=== PATIENT | male | born 1955 | race Caucasian/White ===

== ENCOUNTER 2020-10-10 07:39 | Day surgery (SDC) | payer BC ==
[2020-10-03 16:33] LABS: BASOPHILS # (AUTO) 0.1 X10'3 (0-0.2); EOSINOPHILS # (AUTO) 0.1 X10'3 (0-0.9); EOSINOPHILS % (AUTO) 2.8 % (0-6); LYMPHOCYTES # (AUTO) 1.3 X10'3 (1.1-4.8); LYMPHOCYTES % (AUTO) 25.1 % (21-51); MEAN CORPUSCULAR HEMOGLOBIN 33.4 PG (27.0-31.0); MEAN CORPUSCULAR HGB CONC 34.2 g/dL (33.0-36.5); MEAN CORPUSCULAR VOLUME 97.6 FL (78-98); MEAN PLATELET VOLUME 7.5 FL (7.4-10.4); MONOCYTES # (AUTO) 0.5 X10'3 (0-0.9); NEUTROPHILS # (AUTO) 3.2 X10'3 (1.8-7.7); NEUTROPHILS % (AUTO) 61.1 % (42-75); PRE OP HEMATOCRIT 47.3 % (42.0-52.0); PRE OP HEMOGLOBIN 16.2 g/dL (14.0-17.9); PRE OP PLATELET COUNT 227 X10'3 (140-440); RED BLOOD COUNT 4.85 X10'6 (4.70-6.10); RED CELL DISTRIBUTION WIDTH 12.9 % (11.5-14.5)
[2020-10-03 16:38] LABS: PRE OP PROTIME 10.8 SECONDS (9.0-12.0)
[2020-10-03 16:40] LABS: ALBUMIN 3.7 G/DL (3.4-5.0); ALKALINE PHOSPHATASE 80 IU/L (46-116); BLOOD UREA NITROGEN 14 MG/DL (7-18); BUN/CREATININE RATIO 16.7 (5.4-32.0); CHLORIDE 105 MMOL/L (99-107); CREATININE 0.84 MG/DL (0.60-1.10); PRE OP ANION GAP 6 (8-16); PRE OP AST 53 U/L (10-37); PRE OP BILIRUB, TOTAL 0.8 MG/DL (0.0-1.0); PRE OP GLUCOSE 89 MG/DL (70-104); PRE OP POTASSIUM 3.6 MMOL/L (3.4-5.1); PRE OP SODIUM 141 MMOL/L (135-145); TOTAL CARBON DIOXIDE 29.7 MMOL/L (24-32); TOTAL PROTEIN 7.3 G/DL (6.4-8.2); eGFR > 90 ML/MIN
[2020-10-03 16:48] LABS: PRE OP ALT 85 U/L (30-65)
[~2020-10-10] VITALS: Ht 177.8 cm; Wt 92.9 kg
[2020-10-10] VITALS (9 sets, daily range): BP systolic 140–151; BP diastolic 82–97
[~2020-10-10 07:39] MED LIST: DIPH25CA52 PO; FLO0.4C PO; FLUT16SP2 BOTHNARES; HYDR-3686 PO; IBUP-24 PO; LIDOcaine 1% W/epiNEPHrine 1:100,000 20ml vial ONE; LIDOcaine 1% W/epiNEPHrine 1:200,000 10ml vial ONE; LISI40TA13 PO; MELA1TAB28 PO; cefTAZidime 1gm inj ONE; cocaine 4% topical solution 4ml bottle ONE; diazepam 5mg tablet PO PRN; famotidine 20mg tablet PO ONE; methylPREDNISolone acetate 80mg/ml inj**IM only ONE; mupirocin 2% ointment 22GM ONE; oxymetazoline 15 ML nasal spray NS ONE; oxymetazoline 15 ML nasal spray NS PRN; ringers solution, lacted 1,000 ML IV SCH
[2020-10-10] MEDS ORDERED: midazolam 1 mg/ML 2ml injection ONE (09:25)
[2020-10-10] MEDS ORDERED: fentaNYL/PF 50MCG/1 ML 2ML syringe ONE ×2 (09:25→09:58)
[2020-10-10] MEDS ORDERED: dexamethasone sod phosphate 4mg/ml inj. ONE (09:26)
[2020-10-10] MEDS ORDERED: propofol inj 20 ML IV ONE (09:26)
[2020-10-10] MEDS ORDERED: LIDOcaine 2% (20mg/ml) 5ml vial ONE (09:26)
[2020-10-10] MEDS ORDERED: ondansetron/PF 4mg/2ml inj ONE (09:26)
[2020-10-10] MEDS ORDERED: ondansetron/PF 4mg/2ml inj IV PRN (09:35)
[2020-10-10] MEDS ORDERED: morphine 4 MG/ML inj SYRINge IV PRN (09:35)
[2020-10-10] MEDS ORDERED: morphine 2 MG/ML inj. syringe IV PRN (09:35)
[2020-10-10] MEDS ORDERED: acetaminophen 1000 MG/100ml vial IV ONE (09:35)
[2020-10-10] MEDS ORDERED: meperidine/PF 25mg/ml syringe IV PRN ×3 (09:35)
[2020-10-10] MEDS ORDERED: sevoflurane 250ml liquid IH ONE (09:35)
[2020-10-10] MEDS ORDERED: proCHLORperazine 10 MG/2 ml inj IV PRN (09:35)
[2020-10-10] MEDS ORDERED: labetalol 20mg/4ml (5mg/ml) syringe IV ONE (09:35)
[2020-10-10] MEDS ORDERED: ringers solution, lacted 1,000 ML IV SCH (09:35)
[2020-10-10] MEDS ORDERED: ePHEDrine 50MG/ML INJ. ONE (10:17)
[2020-10-10] MEDS ORDERED: meperidine/PF 25mg/ml syringe ONE (11:05)
--- NOTE | 2020-10-10 11:20 | NUR ---
ADMITTED TO PACU FROM OR ACCOMPANIED BY ANESTHESIA. INTIAL PHYSICAL ASSESSMENT DONE AND RECORDED. REPORT RECEIVED FROM ANESTHESIA.
[2020-10-10] MEDS ORDERED: salt irrigation nasal spray 45 ML SPRAY NS PRN (12:05)
--- NOTE | 2020-10-10 12:30 | NUR ---
DISCHARGE CRITERIA MET, DISCHARGE INSTRUCTIONS GIVEN, DEMONSTRATES VERBAL UNDERSTANDING. DISCHARGED HOME IN GOOD CONDITION.
== END 2020-10-10 12:30 | disposition home or self-care (01) ==
LOC: PAS 07:39
PROVIDERS: ATTEND Otolaryngology
DX: J34.2 Deviated nasal septum (principal); J34.3 Hypertrophy of nasal turbinates; J32.8 Other chronic sinusitis; J34.89 Other specified disorders of nose and nasal sinuses; I10 Essential (primary) hypertension; N40.0 Benign prostatic hyperplasia without lower urinary tract symptoms; Z79.899 Other long term (current) drug therapy; Z79.01 Long term (current) use of anticoagulants; Z98.890 Other specified postprocedural states; Z87.442 Personal history of urinary calculi; Z87.891 Personal history of nicotine dependence
CPT/HCPCS: 30140; 30520; 31240; 31254; 31256; 36415; 61782; 80053; 82948; 85025; 85576; 85610; 85730; 93005; A6402; C9250; J0131; J0713; J1040; J1100; J2001; J2175; J2250; J2405; J2704; J3010; J7040; A4618; A7000; J3490; J7120

== ENCOUNTER 2023-11-25 07:35 | Day surgery (SDC) | payer MEDICARE, OTHER ==
[2023-11-25] VITALS (10 sets, daily range): BP systolic 131–177; BP diastolic 92–100; PULSE 65–106; RESP 14–19; TEMP 98.2; O2SAT 94–100
[~2023-11-25] VITALS: Ht 177.8 cm; Wt 91.6 kg
[2023-11-25] MEDS: tranexamic acid inj. 1,000 MG in normal saline IV soln 100ML IV ONE (05:30)
[2023-11-25] MEDS: cefazolin 2gm/D5W 100mL 100 ML IV ONE (05:30)
[~2023-11-25 07:35] MED LIST changes: +AMLO5TAB16 PO; +AZEL137S4 BOTHNARES; -DIPH25CA52 PO; +DUTA0.5C36 PO; -FLUT16SP2 BOTHNARES; -IBUP-24 PO; -LIDOcaine 1% W/epiNEPHrine 1:200,000 10ml vial ONE; -MELA1TAB28 PO; +MOME17SP11 BOTHNARES; +Thrombin (Bovine) 5,000 unit vial TP ONE; -cefTAZidime 1gm inj ONE; -diazepam 5mg tablet PO PRN; +epiNEPHrine 1 mg/ml 30ml MDV ONE; -famotidine 20mg tablet PO ONE; -methylPREDNISolone acetate 80mg/ml inj**IM only ONE; -oxymetazoline 15 ML nasal spray NS PRN; -ringers solution, lacted 1,000 ML IV SCH
[2023-11-25] MEDS: ringers solution, lacted 1,000 ML IV SCH ×2 (08:11→11:10)
[2023-11-25] MEDS: famotidine 20mg tablet PO ONE (08:11)
[2023-11-25] MEDS: oxymetazoline 15 ML nasal spray NS ONE (08:11)
[2023-11-25] MEDS: cocaine 4% topical solution 4ml bottle TP ONE (09:40)
[2023-11-25] MEDS ORDERED: sevoflurane 250ml liquid IH ONE (09:42)
[2023-11-25] MEDS ORDERED: fentaNYL/PF 50MCG/1 ML 2ML syringe ONE ×2 (09:43→10:39)
[2023-11-25] MEDS ORDERED: midazolam 1 mg/ML 2ml injection ONE (09:44)
[2023-11-25] MEDS ORDERED: LIDOcaine 2% (20mg/ml) 5ml vial ONE (09:55)
[2023-11-25] MEDS ORDERED: propofol inj 20 ML IV ONE (09:55)
[2023-11-25] MEDS ORDERED: ondansetron/PF 4mg/2ml inj ONE (09:55)
[2023-11-25] MEDS ORDERED: dexamethasone sod phosphate 4mg/ml inj. ONE (09:55)
[2023-11-25] MEDS ORDERED: meperidine/PF 25mg/ml syringe IV PRN ×3 (11:10)
[2023-11-25] MEDS ORDERED: ondansetron/PF 4mg/2ml inj IV PRN (11:10)
[2023-11-25] MEDS ORDERED: proCHLORperazine 10 MG/2 ml inj IV PRN (11:10)
[2023-11-25] MEDS ORDERED: labetalol 20mg/4ml (5mg/ml) syringe IV PRN (11:10)
[2023-11-25] MEDS: acetaminophen 1,000mg/100ml IV 100 ML IV ONE (11:16)
[2023-11-25] MEDS: hydrALAZINE 20mg/ml inj. IV PRN (11:23)
[2023-11-25] MEDS: morphine 2 MG/ML inj. syringe IV PRN (11:37)
[2023-11-25] MEDS: morphine 4 MG/ML inj SYRINge IV PRN (11:54)
[2023-11-25] MEDS: salt irrigation nasal spray 45 ML SPRAY NS PRN (12:18)
== END 2023-11-25 12:26 | disposition home or self-care (01) ==
LOC: PRE-OP 07:35 → PAS 12:26
PROVIDERS: ATTEND Otolaryngology
DX: J32.3 Chronic sphenoidal sinusitis (principal); J34.3 Hypertrophy of nasal turbinates; J32.9 Chronic sinusitis, unspecified; J34.2 Deviated nasal septum; I10 Essential (primary) hypertension; J33.9 Nasal polyp, unspecified; Z79.899 Other long term (current) drug therapy; Z98.890 Other specified postprocedural states; Z87.891 Personal history of nicotine dependence; Z72.89 Other problems related to lifestyle; Z87.442 Personal history of urinary calculi
CPT/HCPCS: 30140; 30520; 31259; 61782; 82948; 93005; A4618; A6402; A7000; C1726; J0131; J0171; J0360; J0690; J1100; J2001; J2250; J2270; J2405; J2704; J3010; J3490; J7030; J7050; J7120; Z7506; Z7508; Z7512; Z7610; A6449